=== PATIENT | female | born 1945 | race Caucasian/White ===

== ENCOUNTER 2017-11-21 06:55 | Emergency (ER) | END 2017-11-21 12:24 | disposition home or self-care (01) ==

== ENCOUNTER 2018-02-19 22:19 | Observation (INO) | END 2018-02-23 17:00 | disposition home or self-care (01) ==

== ENCOUNTER 2018-12-07 14:39 | Emergency (ER) | payer SELFPAY ==
[~2018-12-07] VITALS: Ht 152.4 cm; Wt 53.0 kg
[~2018-12-07 14:39] MED LIST: AMLO-147 PO; ASPI-817 PO; ATOR20TA65 PO; EZET10TA31 PO; HYDR-3672 PO; LATA2.5D2 OP; METF500T24 PO; METO-336 PO; VALS160T20 PO
[2018-12-07 14:45] VITALS: RESP 18; Ht 152.4 cm; Wt 53.0 kg
[2018-12-07 17:01] VITALS: BP 191/78; PULSE 55
== END 2018-12-07 14:49 | disposition left against medical advice (07) ==
LOC: E/R 14:39
DX: Z53.21 Procedure and treatment not carried out due to patient leaving prior to being seen by health care provider (principal)